=== PATIENT | female | born 2000 | race Caucasian/White ===

== ENCOUNTER 2025-05-03 12:56 | Outpatient (CLI) | payer OTHER, SELFPAY ==
--- NOTE | ~2025-05-03 | XR_ITS ---
XR wrist RT min 3V, XR hand RT min 3V 05/03/2025 13:22 (accession [id number]), 05/03/2025 13:23 (accession [id number]) Indication: Right wrist and hand pain Procedure: 4 views right wrist and 3 views right hand Comparison: No prior studies for comparison. Findings: There are 3 screws transfixing the proximal aspect of the second middle phalanx. There is anatomic alignment. No fracture or traumatic malalignment. No focal soft tissue abnormality. No foreign bodies. Impression: 1: No acute bone or joint abnormality. Reviewed, dictated and finalized at location O. [employer] Impression: 1: No acute bone or joint abnormality. Impression: 1: No acute bone or joint abnormality.
== END 2025-05-03 12:57 | disposition home or self-care (01) ==
DX: M79.641 Pain in right hand (principal); M25.531 Pain in right wrist; M25.431 Effusion, right wrist
CPT/HCPCS: 73110; 73130